=== PATIENT | female | born 1985 | race Caucasian/White ===

== ENCOUNTER 2021-04-01 15:04 | Outpatient (CLI) | payer OTHER ==
--- NOTE | 2021-04-02 12:38 | Ultrasound Report ---
PROCEDURE: OB F/U or Repeat INDICATIONS: LARGE FOR GESTATIONAL AGE OUTSIDE/PRIOR DATING DATA: Last menstrual period (LMP): Not available.. LMP-based estimated date of delivery (QUIQUE): Not available. The data below was generated using the QUIQUE of 05/19/2021 provided by an report dated 01/05/2021 from [facility]. TECHNIQUE: Real-time scanning was performed of the fetus, with image documentation and biometric measurements. Endovaginal scanning: Not performed. COMPARISON: None. FINDINGS: General: A single living intrauterine gestation is present. Presentation: Vertex. Placenta: Placental position is anterior, without previa. Amniotic fluid index: 17.1 cm; largest pocket 4.72 cm. heart rate: 143 beats per minute. Maternal cervical canal: 4.66 cm long; normal length is 2.5 cm or more. biometrics: Biparietal diameter: 8.85 cm; 35 weeks 5 days Head circumference: 32.03 cm; 36 weeks 1 day Abdominal circumference: 31.63 cm; 35 weeks 4 days Femur length: 6.08 cm; 21 weeks 4 days Estimated gestational age from initial scan: 33 weeks 1 day. Composite gestational age from present scan: 34 weeks 5 days Estimated weight and percentile: 2466.4 g; 83.7%. Measurement variability in biometric dating: +/- 10 days from 12-20 weeks gestation, +/- 2 weeks from 20-30 weeks gestation, +/- 3 weeks at 30 weeks gestation or more. Other: Left renal pelviectasis measuring 11 mm. right kidney is not well visualized.. IMPRESSION: 1. A single living intrauterine gestation with appropriate interval growth. weight at 2466.4 g (83.7% for gestational age). 2. left renal pelviectasis. right kidney is not well seen. Follow-up imaging is suggested . 3. Normal MICHAEL. Reviewed by: Maria Teresa Gardiner MD on 04/02/2021 12:37 PM PDT Approved by: Maria Teresa Gardiner MD on 04/02/2021 12:37 PM PDT Station ID: [id number]
== END 2021-04-01 15:05 | disposition home or self-care (01) ==
LOC: DI 15:04
PROVIDERS: ATTEND Midwife
DX: O35.8XX0 Maternal care for other (suspected) fetal abnormality and damage, not applicable or unspecified (principal); Z3A.33 33 weeks gestation of pregnancy

== ENCOUNTER 2021-04-18 10:28 | Outpatient (CLI) | payer OTHER ==
[2021-04-18 11:01] VITALS: BP 128/72
--- NOTE | 2021-04-18 12:14 | PROCEDURE REPORT ---
- HPI Diagnosis/Indication for NST: Other (Patient presents today with a swollen left side of her neck. She notes good motion she denies contractions. She has not had an unremarkable . She is currently being seen by the digital court reporter in [facility] in [facility]. She was told by her digital court reporter to come here because o) Current EDU 05/12/21 Gestation 36 Weeks and 4 Days Vital Signs Temperature 37 C 04/18/21 10:59 Heart Rate 84 04/18/21 10:59 Respiratory Rate 16 04/18/21 10:59 Blood Pressure 128/72 04/18/21 10:59 O2 Saturation 99 04/18/21 10:59 Temperature 37 C 04/18/21 10:59 Heart Rate 84 04/18/21 10:59 Respiratory Rate 16 04/18/21 10:59 Blood Pressure 128/72 04/18/21 10:59 O2 Saturation 99 04/18/21 10:59 - NST Procedure Patient nonstress test is reactive baseline was running 120s with accelerations. There is no evidence of any decelerations decelerations at this time. Her blood pressures are running 120s over 70s. - Results and Plan Findings/Impression: Identification 35-year-old G1, P0 female at 36 weeks and 3 days. She has had her OB care done at [facility] in [facility]. She presents today with a swelling of the left side of her neck. She was told to come here for evaluation. The infant is currently running at the 96 percentile by ultrasound at 36 weeks gestation. Patient is being sent to the emergency department for evaluation of her swollen neck.
== END 2021-04-18 11:40 | disposition home or self-care (01) ==
LOC: WFO 10:28 → FBP 10:33 → WFO 11:40
PROVIDERS: ATTEND Obstetrics & Gynecology
DX: O99.891 Other specified diseases and conditions complicating pregnancy (principal); R22.1 Localized swelling, mass and lump, neck; Z3A.36 36 weeks gestation of pregnancy
CPT/HCPCS: 59025; 99212

== ENCOUNTER 2021-04-18 11:43 | Emergency (ER) | payer OTHER ==
[2021-04-18 12:02] VITALS: BP 116/64
== END 2021-04-18 12:43 | disposition left against medical advice (07) ==
LOC: ED 11:43
DX: O99.891 Other specified diseases and conditions complicating pregnancy (principal); R22.1 Localized swelling, mass and lump, neck; Z3A.36 36 weeks gestation of pregnancy
CPT/HCPCS: 59025; 99212; 99213